=== PATIENT | female | born 1980 | race African-American/Black ===

== ENCOUNTER 2024-11-22 13:42 | Inpatient (IN) | payer OTHER ==
[~2024-11-22] VITALS: Ht 170.2 cm; Wt 62.1 kg
[2024-11-22] MEDS: HALOPERIDOL LACTATE 5MG/ML VIAL IM STA (14:47)
[2024-11-22] MEDS: DIPHENHYDRAMINE 50MG/ML VIAL IM STA (14:47)
[2024-11-22] MEDS: LORAZEPAM 2MG/ML UD SYRINGE IV SCH (14:48)
[2024-11-22] MEDS: SODIUM CHLORIDE 0.9% 1,000 ML IV ONE (14:48)
[2024-11-22] MEDS: LORAZEPAM 2MG/ML INJ IV STA (14:53)
[2024-11-22 15:29] LABS: DIFFERENTIAL COMMENT 1; HEMATOCRIT. 38.6 % (36.0-48.0); HEMOGLOBIN. 12.7 g/dL (12.0-16.0); MEAN CORPUSCULAR HEMOGLOBIN 29.5 pg (28.0-32.0); MEAN CORPUSCULAR HGB CONC 32.9 g/dL (31.0-37.0); MEAN CORPUSCULAR VOLUME 89.5 fL (81.0-99.0); MEAN PLATELET VOLUME 8.9 fl (7.4-10.4); PLATELET 253 x1000/uL (130-400); RED BLOOD CELL COUNT 4.31 mill/uL (4.2-5.4); RED CELL DISTRIBUTION WIDTH 13.1 % (11.6-14.6); WHITE BLOOD COUNT 13.4 x1000/uL (4.5-11.0)
[2024-11-22 15:36] LABS: CHLORIDE 112 mEq/L (98-107); POTASSIUM 3.4 mEq/L (3.5-5.1); SODIUM 144 mEq/L (136-145)
[2024-11-22 15:37] LABS: CARBON DIOXIDE 23 mEq/L (21-32); PROTHROMBIN TIME 10.9 sec (9.6-11.0)
[2024-11-22 15:38] LABS: CALCIUM 9.8 mg/dL (8.7-10.4)
[2024-11-22 15:39] LABS: HCG SCREEN NEGATIVE
[2024-11-22 15:42] LABS: CREATININE 1.2 mg/dL (0.6-1.0); UREA NITROGEN BLOOD 18 mg/dL (9-23)
[2024-11-22 15:43] LABS: ETHANOL BLOOD < 10 mg/dL (<10); GLUCOSE 72 mg/dL (70-105); PLATELET ESTIMATE NORMAL
[2024-11-22 15:44] LABS: ACETAMINOPHEN < 2 ug/mL (10-30); ALANINE AMINOTRANSFERASE 108 IU/L (10-49); ALBUMIN 4.3 g/dL (3.2-4.8); AMMONIA < 17 uMol/L (<32); ASPARTATE AMINOTRANSFERASE 196 IU/L (<34)
[2024-11-22 15:45] LABS: BILIRUBIN DIRECT < 0.1 mg/dL (<=3.0); BILIRUBIN TOTAL 0.3 mg/dL (0.1-1.0); PROTEIN TOTAL 7.2 g/dL (6.0-8.3)
[2024-11-22 15:48] LABS: THYROID STIMULATING HORMONE 1.31 uIU/mL (0.55-4.78)
[2024-11-22 15:50] LABS: TROPONIN I HIGH SENSITIVITY 46 ng/L (3.0-34)
[2024-11-22 20:00] VITALS: PULSE 89; RESP 18; TEMP 36.4; O2SAT 100
[2024-11-22] MEDS ORDERED: IPRATROPIUM/ALBUTEROL 0.5-3(2.5)MG/3ML NEB HHN PRN (21:00)
[2024-11-22] MEDS ORDERED: ACETAMINOPHEN 325MG TABLET PO PRN (21:00)
[2024-11-22] MEDS ORDERED: ONDANSETRON HCL 4MG/2ML INJ IV PRN (21:00)
[2024-11-22 21:54] VITALS: BP 104/69; PULSE 87; RESP 16; TEMP 36.4
[2024-11-22] MEDS: ENOXAPARIN 40MG/0.4ML SYR SUBCUT SCH (22:43)
[2024-11-22] MEDS: CEFTRIAXONE 1GM/50ML 50 ML IV SCH (22:43)
[2024-11-22] MEDS: SODIUM CHLORIDE 0.45% 1,000 ML IV SCH (22:58)
[2024-11-22] MEDS: KCL 20MEQ/100ML PREMIX 100 ML IV SCH (23:41)
[2024-11-22] MEDS: PANTOPRAZOLE SODIUM 40 MG/VIAL IV SCH (23:41)
[2024-11-23] VITALS: BP 133/86; PULSE 101; RESP 17; TEMP 36.4; O2SAT 98
[2024-11-23 03:27] LABS: TROPONIN I HIGH SENSITIVITY 307 ng/L (3.0-34)
[2024-11-23 04:00] VITALS: BP 117/70; PULSE 95; RESP 18; TEMP 36.4; O2SAT 97
[2024-11-23 06:16] LABS: BASOPHILS % 0.2 % (0.0-2.0); HEMATOCRIT. 39.2 % (36.0-48.0); HEMOGLOBIN. 12.8 g/dL (12.0-16.0); MEAN CORPUSCULAR HGB CONC 32.7 g/dL (31.0-37.0); MEAN CORPUSCULAR VOLUME 88.8 fL (81.0-99.0); MEAN PLATELET VOLUME 9.2 fl (7.4-10.4); MONOCYTES % 8.2 % (2.0-8.0); NEUTROPHILS % 68.6 % (40.0-76.0); PLATELET 235 x1000/uL (130-400); RED BLOOD CELL COUNT 4.42 mill/uL (4.2-5.4); RED CELL DISTRIBUTION WIDTH 13.5 % (11.6-14.6); WHITE BLOOD COUNT 8.8 x1000/uL (4.5-11.0)
[2024-11-23 06:49] LABS: HEPATITIS B SURFACE ANTIGEN NEGATIVE (Negative)
[2024-11-23 07:10] LABS: HEPATITIS A AB IGM NEGATIVE (Negative); HEPATITIS B CORE AB IGM NEGATIVE (Negative)
[2024-11-23 07:11] LABS: HEPATITIS C AB NON REACTIVE (Neg) (Negative)
[2024-11-23 07:15] LABS: CARBON DIOXIDE 23 mEq/L (21-32); CHLORIDE 112 mEq/L (98-107); POTASSIUM 3.3 mEq/L (3.5-5.1); SODIUM 144 mEq/L (136-145)
[2024-11-23 07:17] LABS: CALCIUM 8.4 mg/dL (8.7-10.4)
[2024-11-23 07:21] LABS: CREATININE 0.7 mg/dL (0.6-1.0); GLUCOSE 87 mg/dL (70-105)
[2024-11-23 07:22] LABS: UREA NITROGEN BLOOD 16 mg/dL (9-23)
[2024-11-23 08:00] VITALS: BP 131/81; PULSE 89; RESP 18; TEMP 36.1; O2SAT 98
[2024-11-23 08:51] LABS: TROPONIN I HIGH SENSITIVITY 253 ng/L (3.0-34)
[2024-11-23] MEDS: MULTIVITAMINS,THER W-MINERALS TABLET PO SCH (09:22)
[2024-11-23] MEDS: THIAMINE HCL 100MG TABLET PO SCH (09:22)
[2024-11-23] MEDS: ASPIRIN 81MG EC TABLET PO SCH (09:22)
[2024-11-23] MEDS: FOLIC ACID 1MG TABLET PO SCH (09:23)
[2024-11-23] MEDS: PANTOPRAZOLE SODIUM 40 MG/VIAL IV SCH (09:46)
[2024-11-23] MEDS ORDERED: LACTULOSE 20G/30ML UDC PO PRN (11:00)
[2024-11-23 12:00] VITALS: BP 134/86; PULSE 88; RESP 18; TEMP 36; O2SAT 96
[2024-11-23] MEDS: POTASSIUM CHLORIDE 20MEQ TABLET SR PO SCH (12:37)
[2024-11-23] MEDS: DOCUSATE SODIUM 100MG CAPSULE PO SCH (12:38)
[2024-11-23 16:00] VITALS: BP 136/88; PULSE 96; RESP 18; TEMP 36.3; O2SAT 98
[2024-11-23 20:00] VITALS: BP 140/88; PULSE 96; RESP 16; TEMP 36.4; O2SAT 99
[2024-11-23] MEDS: BISACODYL 5MG TABLET PO ONE (21:07)
[2024-11-24] VITALS: BP 137/78; PULSE 100; RESP 17; TEMP 36.3; O2SAT 99
[2024-11-24 04:00] VITALS: BP 129/78; PULSE 76; RESP 18; TEMP 35.9; O2SAT 97
[2024-11-24 08:00] VITALS: BP 134/94; PULSE 87; RESP 16; TEMP 36.4; O2SAT 100
[2024-11-24 12:00] VITALS: BP 112/67; PULSE 90; RESP 12; TEMP 36.4; O2SAT 99
[2024-11-24] MEDS: KCL 20MEQ/100ML PREMIX 100 ML IV SCH (12:52)
[2024-11-24 16:00] VITALS: BP 126/77; PULSE 88; RESP 15; TEMP 36.3; O2SAT 100
[2024-11-24 20:00] VITALS: BP 114/70; PULSE 90; RESP 18; TEMP 36.5; O2SAT 98
[2024-11-24 20:33] LABS: CLARITY URINE CLEAR (CLEAR); COLOR URINE YELLOW (YELLOW); GLUCOSE URINE NEGATIVE (NEGATIVE); KETONES URINE 1+ (NEGATIVE); LEUKOCYTE ESTERASE URINE 1+ (NEGATIVE); NITRITE URINE NEGATIVE (NEGATIVE); OCCULT BLOOD URINE TRACE (NEGATIVE); PROTEIN URINE TRACE (NEGATIVE)
[2024-11-24 20:53] LABS: BACTERIA URINE 1+; RBC URINE 0-2 /hpf (0-2); SQUAMOUS EPITHELIAL CELL URINE FEW /lpf (RARE/1+)
[2024-11-24 21:09] LABS: *AMPHETAMINES SCREEN URINE PRESUMPTIVE POSITIVE (NEGATIVE); *BARBITURATES SCREEN URINE NEGATIVE (NEGATIVE); *BENZODIAZEPINES SCREEN URINE NEGATIVE (NEGATIVE); *COCAINE SCREEN URINE NEGATIVE (NEGATIVE); CANNABINOID URINE SCREEN NEGATIVE (NEGATIVE); ECSTASY MDMA SCREEN URINE NEGATIVE (NEGATIVE); METHADONE URINE SCREEN NEGATIVE (NEGATIVE); OPIATES URINE SCREEN NEGATIVE (NEGATIVE); PHENCYCLIDINE URINE SCREEN PRESUMTIVE POSITIVE (NEGATIVE)
[2024-11-25] VITALS: BP 115/64; PULSE 97; RESP 18; TEMP 36.5; O2SAT 100
[2024-11-25 04:00] VITALS: BP 103/58; PULSE 83; RESP 18; TEMP 36.6; O2SAT 99
[2024-11-25] MEDS: ACETAMINOPHEN 325MG TABLET PO PRN (06:12)
[2024-11-25 08:00] VITALS: BP 129/81; PULSE 86; RESP 20; TEMP 36.7; O2SAT 100
[2024-11-25 12:00] VITALS: BP 113/66; PULSE 89; RESP 18; TEMP 36.9; O2SAT 98
[2024-11-25 14:50] VITALS: BP 113/66; PULSE 89; TEMP 98.4; O2SAT 98
== END 2024-11-25 15:24 | disposition home or self-care (01) | DRG 812 ==
LOC: ER 13:42 → EDBEDREQ 20:24 → ENRESERV 20:50 → 5WST 21:17 → EDBD 21:17
PROVIDERS: ADMIT Internal Medicine; ATTEND Internal Medicine
DX: T40.991A Poisoning by other psychodysleptics [hallucinogens], accidental (unintentional), initial encounter (principal); I21.A1 Myocardial infarction type 2; N17.9 Acute kidney failure, unspecified; E87.6 Hypokalemia; D72.825 Bandemia; R74.01 Elevation of levels of liver transaminase levels; R41.82 Altered mental status, unspecified; Z79.82 Long term (current) use of aspirin; Y92.89 Other specified places as the place of occurrence of the external cause
CPT/HCPCS: 36415; 71045; 71250; 74176; 80048; 80076; 80305; 80307; 80320; 80329; 81003; 82140; 84443; 84484; 84703; 85025; 86705; 86709; 87340; 93005; 96361; 96372; 96374; 99291; A4606; J0696; J1200; J1630; J1650; J2060; J2470; J3480; J7030; G0480